=== PATIENT | female | born 1965 | race Two or more races ===

== ENCOUNTER 2021-07-06 09:15 | Inpatient (IN) | payer OTHER ==
[~2021-07-06] VITALS: Ht 160 cm; Wt 86.2 kg
[2021-07-06] MEDS ORDERED: PROZAC20 MG PO (09:52)
[2021-07-06] MEDS ORDERED: TENORMIN50 M1 PO (09:53)
[2021-07-06] MEDS ORDERED: SINGULAIR10 MG PO (09:53)
[2021-07-06] MEDS ORDERED: ATACAND16 MG PO (09:53)
[2021-07-06] MEDS ORDERED: ZETIA10 MG PO (09:54)
[2021-07-06] MEDS ORDERED: SYMBICORT 16010.2 GM IH (09:54)
[2021-07-08] MEDS ORDERED: ALLERGY RELIEF10 M1 (08:43)
[2021-07-08] MEDS ORDERED: ELETRIPTAN HBR40 MG (08:43)
== END 2021-07-09 19:07 | disposition home or self-care (01) | DRG 743 ==
LOC: SURG-SUITE 07-08 05:15 → O/R 07-08 05:15 → SURH 07-08 09:15 → SURG-SUITE 07-08 09:38 → SURH 07-08 10:00 → SURG-SUITE 07-09 19:07
PROVIDERS: ADMIT Specialist; ATTEND Specialist
PROC: 0UT7FZZ Resection of Bilateral Fallopian Tubes, Via Natural or Artificial Opening With Percutaneous Endoscopic Assistance (ICD-10-PCS; 2021-07-08)
PROC: 0UT2FZZ Resection of Bilateral Ovaries, Via Natural or Artificial Opening With Percutaneous Endoscopic Assistance (ICD-10-PCS; 2021-07-08)
PROC: 0UB14ZZ Excision of Left Ovary, Percutaneous Endoscopic Approach (ICD-10-PCS; 2021-07-08)
PROC: 3E1M48Z Irrigation of Peritoneal Cavity using Irrigating Substance, Percutaneous Endoscopic Approach (ICD-10-PCS; 2021-07-08)
PROC: 0UT9FZZ Resection of Uterus, Via Natural or Artificial Opening With Percutaneous Endoscopic Assistance (ICD-10-PCS; principal; 2021-07-08 10:00)
DX: D25.1 Intramural leiomyoma of uterus (principal); D25.0 Submucous leiomyoma of uterus; D25.2 Subserosal leiomyoma of uterus; N83.291 Other ovarian cyst, right side; Z20.822 Contact with and (suspected) exposure to COVID-19; N84.0 Polyp of corpus uteri